=== PATIENT | female | born 1940 | race Caucasian/White ===

== ENCOUNTER 2021-03-23 18:58 | Emergency (ER) | payer MEDICARE, SELFPAY ==
[2021-03-23 19:22] VITALS: BP 196/87; PULSE 85; RESP 15; TEMP 36.9; O2SAT 98; BMI 21.5
[2021-03-23 19:52] LABS: Add Manual Diff / Slide Review NO; Basophils Absolute Auto 0 /uL (0-100); Basophils Percent Auto 0.5 % (0-2); Eosinophils Absolute Auto 200 /uL (0-450); Eosinophils Percent Auto 2.3 % (2-4); Hematocrit 34.2 % (36-46); Hemoglobin 11.4 g/dL (12.0-16.0); Lymphocytes Absolute Auto 2400 /uL (1100-4500); Lymphocytes Percent Auto 31.9 % (25-40); Mean Corpuscular HGB Conc 33.3 % (30-36); Mean Corpuscular Hemoglobin 27.1 PG (26-34); Mean Corpuscular Volume 81.2 fL (80-100); Monocytes Absolute Auto 500 /uL (0-900); Monocytes Percent Auto 7.2 % (3-14); Neutrophils Absolute Auto 4400 /uL (1500-7000); Neutrophils Percent Auto 58.1 % (50-75); Platelet Count 362 X10^3/uL (150-400); Red Blood Cell Count 4.21 X10^6/uL (4.0-5.2); Red Cell Distribution Width 14.8 % (11.6-14.8); White Blood Cell Count 7.5 X10^3/uL (4.5-11.0)
[2021-03-23 20:17] LABS: Alanine Aminotransferase 16 IU/L (<35); Albumin Globulin Ratio 1.4 (1.0-2.8); Alkaline Phosphatase 128 U/L (38-126); Aspartate Aminotransferase 24 IU/L (14-36); Bilirubin Total 0.3 mg/dL (0.2-1.3); Blood Urea Nitrogen 29 mg/dL (7-17); Calcium 10.4 mg/dL (8.4-10.2); Carbon Dioxide 22 mmol/L (22-32); Chloride 109 mmol/L (98-107); Estimated Glomerular Filt Rate 53.3 mL/min (>60); Globulin 2.9 g/dL (1.7-4.1); Glucose 104 mg/dL (80-110); HEMOLYSIS < 15 (0-50); Lipase 89 U/L (23-300); Potassium 4.6 mmol/L (3.4-5.1); Sodium 136 mmol/L (137-145); Total Protein 6.9 g/dL (6.3-8.2)
--- NOTE | 2021-03-23 20:20 | DI.CT.S_ITS ---
PROCEDURE: CT ABDOMEN PELVIS WO CON INDICATIONS: lower pain prior obstructions TECHNIQUE: Noncontrast 5 mm thick sections acquired from the diaphragms to the symphysis. 5 mm coronal and sagittal reformats were then performed. For radiation dose reduction, the following was used: automated exposure control, adjustment of mA and/or kV according to patient size. COMPARISON: [facility], CT, CT ABDOMEN PELVIS WITHOUT CONTRAST, 12/01/2020, 16:56. [facility], CT, ABDOMEN/PELVIS WITHOUT CONTRAST, 09/25/2011, 11:45. FINDINGS: Image quality: Excellent. ABDOMEN: Lung bases: Lung bases are clear. Heart size is normal. Solid organs: Noncontrast evaluation of the liver demonstrates no focal hepatic lesions. Gallbladder is surgically absent. There is attenuated appearance of the pancreatic head and uncinate process which appears similar to the prior study and likely represents sequelae of fatty atrophy. No definite pancreatic mass lesions. No pancreatic duct dilatation. No peripancreatic fluid collections. Spleen is normal in size. No adrenal nodules. Kidneys demonstrate no hydronephrosis. Peritoneum and bowel: Postsurgical changes redemonstrated consistent with prior gastric bypass. There is mild fluid distention of the descending portion of the duodenum. Small and large bowel loops otherwise demonstrate normal wall thickness and caliber. No pericecal inflammatory changes to suggest appendicitis. No free fluid or air. Nodes and vessels: No retroperitoneal or mesenteric adenopathy by size criteria. Aorta and inferior vena cava are normal in caliber. Miscellaneous: No ventral hernias. PELVIS: Genitourinary: Bladder wall thickness is normal. The uterus is surgically absent. Miscellaneous: No inguinal hernias or adenopathy. Bones: No suspicious bony lesions. There are old healed fractures of the pelvic grade including the right superior and inferior pubic rami and likely the right sacrum. No vertebral body compression fractures. IMPRESSION: 1. Postsurgical changes consistent with prior gastric bypass redemonstrated with mild fluid distention of the descending portion of the duodenum which may reflect afferent loop syndrome. 2. Elsewhere, no evidence of bowel obstruction. Dictated by: Earnest Lombardi M.D. on 03/23/2021 at 20:55 Approved by: Earnest Lombardi M.D. on 03/23/2021 at 21:07
--- NOTE | 2021-03-23 20:20 | ED.ABDPAIN ---
HPI - Abdominal Pain General Chief Complaint: Abdominal Pain Stated Complaint: ABDOMINAL PAIN Time Seen by Provider: 03/23/21 19:53 Source: patient Mode of arrival: Wheelchair History of Present Illness HPI narrative: Patient is a 80-year-old female with history of bowel is obstruction, multiple abdominal surgeries presenting today with left lower quadrant pain ongoing for the last few days. She has not had a bowel movement no nausea or vomiting only intense pain. She said that she has had this happen multiple times. She said last time they were unable to figure out the cause of her pain. It just went away on its own. The pain is out of control today. She denies any fever chills. Related Data Home Medications Medication Instructions Recorded Confirmed [Percocet 7] 1 tab PO PRN #0 02/03/10 [VITAMIN D] QDAY #0 02/03/10 Allergies Allergy/AdvReac Type Severity Reaction Status Date / Time Amlodipine Allergy Unknown Uncoded 03/23/21 19:22 Atenolol Allergy Unknown Uncoded 03/23/21 19:22 Codeine Allergy Unknown Uncoded 03/23/21 19:22 Gabapentin Allergy Unknown Uncoded 03/23/21 19:22 Iodine-Containing Allergy Unknown Uncoded 03/23/21 19:22 SULFA (sulfonamide) Allergy Unknown Uncoded 03/23/21 19:22 Venlafaxine Allergy Unknown Uncoded 03/23/21 19:22 Nsaid AdvReac Unknown Uncoded 03/23/21 19:22 Tape AdvReac Unknown Uncoded 03/23/21 19:22 Review of Systems Review of Systems Narrative: GENERAL: Denies chills, fatigue, malaise, fever, sweats, travel HEENT: Denies sinus pain, ear pain, sore throat, difficulty swallowing, neck pain RESPIRATORY: Denies dyspnea, cough, wheezing, hemoptysis, sputum. CARDIOVASCULAR: Denies chest pain, palpitations, orthopnea, edema GASTROINTESTINAL: See HPI : Denies dysuria, frequency, incontinence, hematuria, urinary retention, flank pain. MUSCULOSKELETAL: Denies weakness, joint pain, or bony pain SKIN: No rash, no erythema, no pruritus NEUROLOGIC: Denies weakness, dizziness, headache, numbness, change in speech, confusion PSYCHIATRIC: No concerning psychosocial issues. 12 point review of systems is negative except for those stated above and HPI Patient History Social History Smoking Status: Unknown if ever smoked Smoking Status: Unknown if ever smoked alcohol intake frequency: holidays/special occasions only Substance Use Type: does not use Exam Initial Vital Signs Initial Vital Signs: Vital Signs Temperature 98.4 F 03/23/21 19:22 Pulse Rate 85 03/23/21 19:22 Respiratory Rate 15 03/23/21 19:22 Blood Pressure 196/87 H 03/23/21 19:22 Pulse Oximetry 98 03/23/21 19:22 GENERAL: 80-year-old female appears in pain HEENT: Head atraumatic,EOMI, pupils reactive, face symmetric, moist mucous membranes CARDIOVASCULAR: Regular rate and rhythm without murmurs, rubs or gallops. RESPIRATORY: Breath sounds equal bilaterally, no wheezes rales or rhonchi. ABDOMEN: Severe tenderness no edema or quadrant feels distended multiple abdominal scar no significant distention EXTREMITIES: Normal range of motion, no clubbing or edema. Neurovascularly intact NEUROLOGICAL: Alert and oriented x4.Normal gait and speech. SKIN: Warm, dry, no laceration, no petechiae, no rashes or lesions. Course Orders Ordered: Discontinued Medications Hydrocodone Bitart/Acetaminophen (Hydrocodone/Acet 5/325 Prepack) 1 bottle MISC SEEINSTR ONE Stop: 03/23/21 22:52 Last Admin: 03/23/21 23:32 Dose: 1 bottle Documented by: NATASHA Hydrocodone Bitart/Acetaminophen (Hydrocodone/Acet 5/325 Prepack) 1 bottle MISC SEEINSTR ONE Stop: 03/23/21 23:22 Last Admin: 03/23/21 23:33 Dose: Not Given Documented by: NATASHA Hydromorphone HCl (Hydromorphone 1 Mg Inj) 1 mg IV NOW ONE Stop: 03/23/21 20:24 Last Admin: 03/23/21 21:01 Dose: 1 mg Documented by: NATASHA Hydromorphone HCl (Hydromorphone 1 Mg Inj) 1 mg IV NOW ONE Stop: 03/23/21 22:18 Last Admin: 03/23/21 22:28 Dose: 1 mg Documented by: NATASHA Vital Signs Vital signs: Vital Signs - 8 hr 03/23/21 22:36 Pulse Rate 83 Respiratory Rate 16 Blood Pressure 155/70 H Pulse Oximetry 93 MDM - Abdominal Pain Lab Data Result diagrams: 03/23/21 19:30 03/23/21 19:30 Labs: Lab Results 03/23/21 03/23/21 03/23/21 Range/Units 19:30 19:30 21:00 WBC 7.5 (4.5-11.0) X10^3/uL RBC 4.21 (4.0-5.2) X10^6/uL Hgb 11.4 L (12.0-16.0) g/dL Hct 34.2 L (36-46) % MCV 81.2 (80-100) fL MCH 27.1 (26-34) PG MCHC 33.3 (30-36) % RDW 14.8 (11.6-14.8) % Plt Count 362 (150-400) X10^3/uL Neut % (Auto) 58.1 (50-75) % Lymph % (Auto) 31.9 (25-40) % [place] % (Auto) 7.2 (3-14) % Eos % (Auto) 2.3 (2-4) % Baso % (Auto) 0.5 (0-2) % Neut # (Auto) 4400 (7503-5481) /uL Lymph # (Auto) 2400 (0883-4235) /uL [place] # (Auto) 500 (0-900) /uL Eos # (Auto) 200 (0-450) /uL Baso # (Auto) 0 (0-100) /uL Sodium 136 L (137-145) mmol/L Potassium 4.6 (3.4-5.1) mmol/L Chloride 109 H (98-107) mmol/L Carbon Dioxide 22 (22-32) mmol/L BUN 29 H (7-17) mg/dL Creatinine 1.00 (0.52-1.04) mg/dL Estimated GFR 53.3 L (>60) mL/min BUN/Creatinine Ratio 29.0 H (6-22) Glucose 104 (80-110) mg/dL Calcium 10.4 H (8.4-10.2) mg/dL Total Bilirubin 0.3 (0.2-1.3) mg/dL AST 24 (14-36) IU/L ALT 16 (<35) IU/L Alkaline Phosphatase 128 H (38-126) U/L Total Protein 6.9 (6.3-8.2) g/dL Albumin 4.0 (3.5-5.0) g/dL Globulin 2.9 (1.7-4.1) g/dL Albumin/Globulin Ratio 1.4 (1.0-2.8) Lipase 89 (23-300) U/L Urine RBC None seen (0-5/HPF) Urine WBC 1-5/hpf (0-5/HPF) Ur Squamous Epith Cells 0-1 /hpf (0-5/HPF) Urine Bacteria Many (>30) H (None) Ur Culture Indicated? Specimen cultured Point of care testing: Urine Dip Bedside Urine Glucose Negative Bedside Urine Bilirubin - Negative Bedside Urine Ketone - Negative Urine Specific [place] 1.020 Bedside Urine Occult Blood - Negative Bedside Urine pH 6.0 Bedside Urine Protein - Negative Bedside Urine Urobilinogen - Negative Bedside Urine Nitrite + Positive Bedside Urine Leukocytes +/- 15 Esterase MDM Narrative Medical decision making narrative: The patient is having lower abdominal pain. Prior surgeries CT does not show any bowel obstruction. Although she is quite tender. No nausea vomiting blood work was overall reassuring. Apparently this happened previously no answers were found seems to be similar to today. It is really located on the left side at low suspicious for dissection. She has severe anaphylaxis to iodine diet even with premedication. So CT with out iodine contrast was done. Patient has no symptoms of UTI but does have nitrates in her urine. Will wait culture and sensitivity. Discharge Plan Departure Patient Disposition: Home Clinical Impression: Abdominal pain Instructions: DI for Abdominal Pain-Adult Activity Restrictions/Additional Instructions: *You have been diagnosed with abdominal pain *What to do: At this time blood work and CT scan do not show any abnormality. *Continue to take medications as directed [place] 1 tablet every 6 hours if needed for pain *Follow up with your primary care provider in 2-3 days or call [phone] *Return to ER if you should have increasing pain persistent vomiting fever or any new, worsening or concerning symptoms CONTROLLED SUBSTANCE DISCHARGE (Narcotoic/benzodiazepine/Flexeril/Phenergan) 1. You have been prescribed narcotic medications, it does have acetaminophen/Tylenol/paracetamol in it, DO NOT TAKE MORE THAN 4,00mg in 24 hours of Tylenol. TRAMADOL DOES NOT CONTAIN TYLENOL 2. Please understand that we cannot provide further refills of narcotics, benzodiazepines or controlled substances through the ED and her pain management will need to be through your provider. 3. While on these medications you cannot drive or operate heavy machinery. 4. You cannot sign legal documents or perform any duties such as this. 5. As long as you're taking opiate pain medications he should also be taking a stool softener such as Colace, Dulcolax, MiraLAX or prune juice, to help avoid constipation. Prescriptions: No Action [Percocet ] 1 tab PO PRN Qty: 0 0RF [VITAMIN D] QDAY Qty: 0 0RF Referrals: Kelley Acosta MD [Primary Care Provider] -
[2021-03-23] MEDS: HYDROMORPHONE 1 MG INJ IV ×2 (21:01→22:28)
[2021-03-23 21:29] LABS: Bacteria Urine Many (>30); Culture Indicated Urine Specimen Cultured; RBC Urine None Seen (0-5/HPF); Squamous Epithelial Cell Urine 0-1 /HPF (0-5/HPF); WBC Urine 1-5/HPF (0-5/HPF)
[2021-03-23 22:36] VITALS: BP 155/70; PULSE 83; RESP 16; O2SAT 93
[2021-03-23] MEDS: HYDROCODONE/ACET 5/325 PREPACK 1 BOTTLE MISC (23:32)
== END 2021-03-23 23:40 | disposition home or self-care (01) ==
PROVIDERS: Emergency Provider Emergency Medicine; Family Provider Family Medicine; PCP Family Medicine
DX: R10.32 Left lower quadrant pain (principal)
CPT/HCPCS: 36415; 74176; 80053; 81003; 81015; 83690; 85025; 87077; 87086; 87186; 96374; 96376; 99284; J1170